=== PATIENT | male | born 1975 | race Caucasian/White ===

== ENCOUNTER 2016-11-15 14:28 | Emergency (ER) | payer OTHER ==
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
== END 2016-11-15 16:45 | disposition home or self-care (01) ==
LOC: ED 14:28
DX: J40 Bronchitis, not specified as acute or chronic (principal)